=== PATIENT | female | born 1990 | race Caucasian/White ===

== ENCOUNTER → 2022-01-07 | Outpatient (CLI) | payer BC ==
[~2022-01-07] MED LIST: ARMOUR THYROID15 MG PO; IBU600 MG PO; MOTRIN 600600 MG/TAB PO; NOVAFERRUM 5050 MG PO; PRENATAL FORMU1 EAC3 PO; SINGULAIR; cryselle
== END ==
LOC: MC.RAD 13:41
DX: N64.52 Nipple discharge (principal)